=== PATIENT | male | born 1990 | race Two or more races ===

== ENCOUNTER 2024-09-08 16:16 | Emergency (ER) | payer OTHER ==
[~2024-09-08] VITALS: Ht 172.7 cm; Wt 101.4 kg
[2024-09-08 16:45] LABS: GLUCOMETER DEV NAME(LOC) ERT.6; GLUCOSE,POINT OF CARE 121 MG/DL (70-110)
[2024-09-08 16:49] LABS: HEMATOCRIT 46.4 % (41-53); HEMOGLOBIN 15.6 g/dL (13.5-17.5); MEAN CORPUSCULAR HEMOGLOBIN 30.2 pg (26.0-34.0); MEAN CORPUSCULAR HGB CONC 33.5 G/dL (31.0-37.0); MEAN CORPUSCULAR VOLUME 90 fL (80-100); RED BLOOD CELL COUNT(AUTO) 5.15 MIL/uL (4.50-5.90); RED CELL DISTRIBUTION WIDTH 14.5 % (11.5-14.5); WHITE BLOOD COUNT (AUTO) 2.4 K/uL (4.5-11.0)
[2024-09-08 17:03] LABS: ANION GAP 7 mmol/L (8-16); CALCIUM, TOTAL 9.5 mg/dL (8.8-10.5); CARBON DIOXIDE 30 mmol/L (22-29); CHLORIDE 93 mmol/L (98-107); CREATININE 0.92 mg/dL (0.60-1.30); GLOMERULAR FILTR. RATE CALC > 60 mL/min (>60); GLUCOSE,RANDOM 107 mg/dL (70-110); POTASSIUM 3.8 mmol/L (3.5-5.1); SODIUM SERUM 130 mmol/L (136-145); UREA NITROGEN, BLOOD 12 mg/dL (7-18)
[2024-09-08 17:05] LABS: ALBUMIN 3.7 g/dL (3.4-5.0); BILIRUBIN,DIRECT 0.3 mg/dL (0.00-0.20)
[2024-09-08 17:10] LABS: TROPONIN I-HIGH SENSITIVITY 6 ng/L (<76)
[2024-09-08 17:25] LABS: PLATELET COUNT (AUTO) 78 K/uL (150-450)
[2024-09-08 17:26] LABS: BAND NEUTROPHILS % (MANUAL) 3 % (0-5); EOSINOPHILS % (MANUAL) 3 % (1-6); LYMPHOCYTES % (MANUAL) 18 % (22-44); MONOCYTES % (MANUAL) 10 % (2-9); SEGMENTED NEUTROPHILS % 66 % (40-70); TOTAL CELLS COUNTED 100
[2024-09-08 17:38] LABS: ALCOHOL, BLOOD (SERUM) < 3 mg/dL (0-10)
[2024-09-08] MEDS: ONDANSETRON 4 MG TABLET PO ONE (17:42)
[2024-09-08] MEDS: ChlordiazePOXIDE HCL 25 MG CAPSULE PO ONE (17:43)
[2024-09-08] MEDS ORDERED: ONDA-104 PO (18:29)
[2024-09-08] MEDS ORDERED: CHLO25CA6 PO (18:29)
[2024-09-08 18:43] VITALS: BP 126/86; PULSE 105; RESP 16; TEMP 98.1; O2SAT 96
== END 2024-09-08 18:57 | disposition home or self-care (01) ==
LOC: EMS 16:16
DX: F10.939 Alcohol use, unspecified with withdrawal, unspecified (principal); D69.6 Thrombocytopenia, unspecified; F41.9 Anxiety disorder, unspecified; R07.89 Other chest pain; R25.1 Tremor, unspecified; R51.9 Headache, unspecified; R11.0 Nausea; Y90.9 Presence of alcohol in blood, level not specified
CPT/HCPCS: 99285; 71045; 80048; 80076; 82962; 83735; 84484; 85025; 36415; 93005; G0480; Q0162